=== PATIENT | female | born 1970 | race Caucasian/White ===

== ENCOUNTER 2017-09-21 05:25 | Inpatient (IN) | payer OTHER ==
--- NOTE | 2017-09-11 13:17 | PAT Medication Instructions ---
Service Date Sep 11, 2017. Current Home Medication List Acetaminophen (Tylenol), 1,000 MG PO PRN Ibuprofen (Advil), 400 MG PO PRN Levothyroxine Sodium (Levothyroxine Sodium), 1 TAB PO QAM Ranitidine (Zantac), 150 MG PO BID PRN for PRN Rizatriptan Benzoate (Maxalt), 10 MG PO PRN [Pseudoephedrine], 1 TAB PO PRN Medication Instructions For Your Scheduled Surgery - Check with surgeon for instructions: Ibuprofen (Advil), 400 MG PO PRN - Hold the following medications the morning of surgery: [Pseudoephedrine], 1 TAB PO PRN - Take the following medications the morning of surgery with a sip of water: Rizatriptan Benzoate (Maxalt), 10 MG PO PRN (if needed) Levothyroxine Sodium (Levothyroxine Sodium), 1 TAB PO QAM Ranitidine (Zantac), 150 MG PO BID PRN for PRN (if needed) Acetaminophen (Tylenol), 1,000 MG PO PRN (okay to up to 4 hours prior to surgery if needed) - Take the following medications as scheduled the night before surgery: [Pseudoephedrine], 1 TAB PO PRN Rizatriptan Benzoate (Maxalt), 10 MG PO PRN (if needed) Ranitidine (Zantac), 150 MG PO BID PRN for PRN iif needed) If you have any questions please call us at [phone] or [phone] or [phone]
[2017-09-11 14:55] LABS: BASO % 0.3 %; BASO ABS # 0.02 K/uL (0-0.2); COMPLETE YES; EOS % 0.4 %; HEMATOCRIT 39.3 % (37-47); IG% 0.3 %; LYMPH % 22.6 %; LYMPH ABS # 1.66 K/uL (1.2-3.4); MEAN CELL VOLUME 91.4 fL (80-100); MEAN CORPUSCULAR HEMOGLOBIN 31.6 pg (25-34); MEAN CORPUSCULAR HGB CONC 34.6 g/dl (32-36); MEAN PLATELET VOLUME 9.3 fL (7.4-10.4); MONO % 5.6 %; NEUT % 70.8 %; PLATELET COUNT 273 K/uL (130-400); WHITE BLOOD COUNT 7.34 K/uL (4.8-10.8)
[~2017-09-21] VITALS: Ht 162.6 cm; Wt 81.2 kg
[2017-09-21] VITALS (8 sets, daily range): BP systolic 107–123; BP diastolic 62–80; PULSE 63–91; TEMP 36.5–37.3; O2SAT 94–99; Ht 162.6 cm; Wt 81.2 kg
[~2017-09-21 05:25] MED LIST: ACET-1256 PO; IBUP-1050 PO; LEVO112T4 PO; PSEUDOEPHEDRINE PO; RIZA10TA18 PO; ZNTT/150 PO
[2017-09-21] MEDS ORDERED: LACTATED RINGER'S 1000ML 1,000 ML IV SCH ×2 (06:00)
[2017-09-21] MEDS ORDERED: CEFAZOLIN 2000MG IV PUSH 10 ML IV SCH (06:00)
[2017-09-21] MEDS ORDERED: MINERAL OIL LIGHT 10 ML BTL ONE (06:36)
[2017-09-21] MEDS ORDERED: LIDOCAINE HCL 1% 20 ML VIAL ONE (06:36)
[2017-09-21] MEDS ORDERED: METHYLENE BLUE 0.5% 10 ML VIAL ONE ×2 (06:37→09:14)
[2017-09-21] MEDS ORDERED: MIDAZOLAM HCL 1 MG/ML 2ML VIAL ONE (06:52)
[2017-09-21] MEDS ORDERED: FENTANYL CITRATE INJ 50 MCG/1 ML 2 ML VIAL ONE ×2 (06:52→11:04)
--- NOTE | 2017-09-21 06:58 | History & Physical Bridge - [place] ---
H&P Re-Evaluation Bridge Note: I have examined the patient, reviewed the History & Physical and in the interval since the performance of the History & Physical I have noted the following changes of clinical significance: No changes noted
[2017-09-21] MEDS ORDERED: HYDROmorphone INJ 2 MG/ML SYR/VIAL ONE (07:28)
[2017-09-21] MEDS ORDERED: GLYCOPYRROLATE INJ 0.2 MG/ML VIAL ONE (07:49)
[2017-09-21] MEDS ORDERED: ROCURONIUM BROMIDE 10 MG/ML 5 ML VIAL IV ONE ×2 (07:49→08:02)
[2017-09-21] MEDS ORDERED: PROPOFOL IV EMULSION 10 MG/ML 20 ML VIAL IV ONE (07:49)
[2017-09-21] MEDS ORDERED: DEXAMETHASONE SOD INJ 4 MG/ML VIAL ONE (07:49)
[2017-09-21] MEDS ORDERED: LIDOCAINE HCL 2% 2 ML VIAL (20MG/ML) ONE (07:49)
[2017-09-21] MEDS ORDERED: PHENYLEPHRINE 100MCG/ML 5ML SYR ONE (07:49)
[2017-09-21] MEDS ORDERED: NEOSTIGMINE METHYLSULFATE 5 MG/5 ML SYR ONE (07:49)
[2017-09-21] MEDS ORDERED: ONDANSETRON INJ 2 MG/ML 2 ML VIAL ONE (07:49)
[2017-09-21] MEDS ORDERED: HYDROmorphone INJ 1 MG/ML SYR IV PRN (11:00)
[2017-09-21] MEDS ORDERED: ONDANSETRON INJ 2 MG/ML 2 ML VIAL IV PRN ×2 (11:00→11:30)
[2017-09-21] MEDS ORDERED: ATROPINE SULFATE 0.1 MG/ML 5ML SYR IV PRN (11:00)
[2017-09-21] MEDS ORDERED: EpHEDrine SULFATE INJ 50 MG/ML AMP IV PRN (11:00)
[2017-09-21] MEDS ORDERED: LABETALOL HCL IV 5 MG/ML 20ML IV PRN (11:00)
[2017-09-21] MEDS ORDERED: FENTANYL CITRATE INJ 50 MCG/1 ML 2 ML VIAL IV PRN (11:00)
[2017-09-21] MEDS ORDERED: MEPERIDINE HCL 25 MG/ML CARP IV PRN (11:00)
[2017-09-21] MEDS ORDERED: BISACODYL 10 MG SUPP PR PRN (11:30)
[2017-09-21] MEDS ORDERED: ZOLPIDEM TARTRATE 5 MG TAB PO PRN (11:30)
[2017-09-21] MEDS ORDERED: MAGNESIUM HYDROXIDE SUSP 30 ML UDC PO PRN (11:30)
[2017-09-21] MEDS ORDERED: PROMETHAZINE HCL INJ 12.5 MG in SODIUM CHLORIDE 0.9% 50ML 50 ML IV PRN (11:30)
[2017-09-21] MEDS ORDERED: ACETAMINOPHEN 325 MG TAB PO PRN (11:30)
[2017-09-21] MEDS ORDERED: OXYCODONE/ACETAMINOPHEN 5-325 TAB PO PRN ×2 (11:30)
[2017-09-21] MEDS ORDERED: KETOROLAC TROMETHAMINE 30 MG/ML VIAL IV. PRN (11:30)
--- NOTE | 2017-09-21 11:53 | Anesthesiology Progress Note ---
Anesthesia Post Op Note Date & Time Sep 21, 2017 at 11:53 Vital Signs Pain Intensity: 4 Vital Signs Past 12 Hours Date Time Temp Pulse Resp B/P (MAP) Pulse Ox O2 Delivery O2 Flow Rate FiO2 09/21/17 11:42 36.0 09/21/17 11:36 116/71 09/21/17 11:32 87 16 09/21/17 11:32 89 16 98 09/21/17 11:31 120/71 09/21/17 11:27 84 12 97 09/21/17 11:27 81 12 09/21/17 11:26 111/78 09/21/17 11:23 69 16 98 09/21/17 11:23 71 16 09/21/17 11:21 109/75 09/21/17 11:18 63 16 97 09/21/17 11:18 63 16 09/21/17 11:17 70 16 98 09/21/17 11:17 69 16 09/21/17 11:16 129/78 09/21/17 11:12 64 16 09/21/17 11:12 64 16 99 09/21/17 11:11 128/81 09/21/17 11:07 74 16 09/21/17 11:07 73 16 99 09/21/17 11:06 132/84 09/21/17 11:02 70 16 09/21/17 11:02 71 16 100 09/21/17 11:01 133/89 09/21/17 10:57 70 12 100 09/21/17 10:57 70 12 09/21/17 10:56 133/74 09/21/17 10:52 84 21 130/80 98 09/21/17 10:52 36.4 86 16 130/80 10 Oxymask 09/21/17 10:52 84 21 09/21/17 05:49 36.8 77 18 116/62 (80) 97 Room Air Notes Mental Status: alert / awake / arousable, participated in evaluation Pt Amnestic to Procedure: Yes Nausea / Vomiting: adequately controlled Pain: adequately controlled Airway Patency, RR, SpO2: stable & adequate BP & HR: stable & adequate Hydration State: stable & adequate Anesthetic Complications: no major complications apparent
[2017-09-21 13:27] LABS: CREATININE 0.89 mg/dl (0.60-1.20)
[2017-09-21] MEDS: LACTATED RINGER'S 1000ML 1,000 ML IV SCH ×2 (13:59→20:28)
[2017-09-21] MEDS: SIMETHICONE 80 MG CHEW PO PRN (19:31)
[2017-09-21] MEDS: IBUPROFEN 600 MG TAB PO PRN (19:32)
[2017-09-21] MEDS: DOCUSATE SODIUM 100 MG CAP PO SCH (20:27)
[2017-09-21 21:03] LABS: HEMATOCRIT 37.7 % (37-47)
[2017-09-22] MEDS: IBUPROFEN 600 MG TAB PO PRN (00:19)
[2017-09-22 04:30] VITALS: BP 98/64; PULSE 91; TEMP 37.1; O2SAT 96
[2017-09-22 06:28] LABS: BASO % 0.1 %; BASO ABS # 0.01 K/uL (0-0.2); COMPLETE YES; EOS % 0.1 %; HEMATOCRIT 32.9 % (37-47); IG% 0.2 %; LYMPH % 19.3 %; LYMPH ABS # 1.72 K/uL (1.2-3.4); MEAN CELL VOLUME 91.9 fL (80-100); MEAN CORPUSCULAR HEMOGLOBIN 31.3 pg (25-34); MEAN PLATELET VOLUME 9.1 fL (7.4-10.4); MONO % 7.8 %; NEUT % 72.5 %; PLATELET COUNT 212 K/uL (130-400); RED BLOOD COUNT 3.58 M/uL (4.2-5.4); WHITE BLOOD COUNT 8.89 K/uL (4.8-10.8)
[2017-09-22 07:00] LABS: BUN/CREATININE RATIO 14.1 (10-20); CREATININE 0.68 mg/dl (0.60-1.20); POTASSIUM 3.6 mmol/L (3.5-5.1)
[2017-09-22 07:20] VITALS: BP 110/67; PULSE 84; TEMP 36.7; O2SAT 97
[2017-09-22] MEDS: SIMETHICONE 80 MG CHEW PO PRN (08:04)
[2017-09-22] MEDS ORDERED: MTR600X PO (08:21)
[2017-09-22] MEDS ORDERED: OXYC-57 PO (08:21)
--- NOTE | 2017-09-22 08:23 | Discharge Instructions ---
Discharge Instructions Date of Service Sep 22, 2017. Admission Reason for Admission: Fibroid Uterus, Menorrhagia Discharge Discharge Diagnosis / Problem: postop Discharge Goals Goal(s): Routine recovery after surgery Activity Recommendations Activity Limitations: as noted below POST OPERATIVE: BOWEL FUNCTION/MEDICATIONS: 1. Constipation pain and discomfort are the most common complaints 5-7 days after surgery. Points 2-6 address the things that can help. 2. Chewing gum can help stimulate the gut and help improve digestion and motility. 3. Milk of Magnesia 1-2 times per day until return of bowel function. 4. Colace is a stool softener that helps. Taking this 2-3 times per day until bowel function returns to normal is highly recommended. 5. Dulcolax is a laxative that may be used if several days have passed without a bowel movement. Alternatively Miralax may be used daily instead. 6. Drink plenty of fluids as this will also reduce constipation. 7. Narcotic pain medications will be prescribed by your physician. They are safe to use and we encourage you to use them. If you are not allergic, ibuprofen will also be prescribed. Many patients will be able to transition off of the narcotic medications to ibuprofen by postoperative day 3. ACTIVITY RECOMMENDATIONS: 1. Get plenty of rest and listen to your body. If you are tired, take a nap. 2. You may shower, but do not take a tub bath until you see your doctor at the 2 week post operative visit. 3. Absolutely NO intercourse and nothing in the vagina until you are examined by your doctor at the 6 week visit. At that visit it will be determined when such activities can be resumed. This can range from 6-12 weeks after your surgery depending on healing time. 4. The main physical activity in the first week should be walking. By the second week you can slowly increase activity. There are no limits on walking up and down stairs. 5. Do not lift more than 5-10 lbs for 4 weeks. Remember the "one-handed rule", i.e. if you can lift something with only one hand it's likely okay. 6. 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 "Overdoing it" can lead to incisions not healing, pain and vaginal bleeding , so again, listen to your body. 7. Driving can be resumed when you feel able. Do not drive within 24 hours of taking a narcotic medication. EXPECTATIONS: 1. Vaginal spotting, bleeding and discharge are common after surgery. There may even be an odor to the discharge which is often related to sutures used in the vagina. If you experience heavy vaginal bleeding, call the office number day or night [phone] 2. Bladder discomfort is common after surgery from the catheter. This usually resolves in 1-2 weeks. 3. By the end of the 3rd or 4th week you should be feeling much better. It may take up to 6 weeks for your energy levels to return to normal. 4. Narcotic medications have side effects such as: dizziness, headache, nausea and/or vomiting. If you suspect your pain medication is causing problems, call our office and we may be able to prescribe an alternate medication. 5. The skin incisions are often covered with a liquid bandage. This will gradually peel off over time. CALL THE OFFICE IF YOU HAVE ANY OF THE FOLLOWIN. Temperature of 101 degrees or higher. 2. Severe abdominal or pelvic pain not relieved by pain medication. 3. Persistent nausea or vomiting. 4. Increased pain with urination or difficulty urinating. 5. Bright red bleeding that soaks more than 1 pad per hour. CONTACT PHONE NUMBERS: Main Office: [phone] Surgical Nurse: [phone] FOLLOW-UP: Post-Operative Appointments: * Individual instructions will have been given about the timing of your first examination, but this is usually at the end of the second week home. * You will need to call the office at soon after discharge to make the appointment for your post-op check-up if it has not already been scheduled. * Additional information regarding activity, sexual intercourse and when to return to work will be given at this appointment. WE WISH YOU A SPEEDY RECOVERY! . Current Hospital Diet Patient's current hospital diet: Regular Diet Discharge Diet Recommended Diet: Regular Diet Procedures Procedures Performed: Total Laparoscopic Hysterectomy, Cystoscopy Pending Studies Studies pending at discharge: no Medical Emergencies . Who to Call and When: Medical Emergencies: If at any time you feel your situation is an emergency, please call 911 immediately. . Non-Emergent Contact Non-Emergency issues call your: Specialist . . "Provider Documentation" section prepared by Zackery Khoury. . VTE Core Measure Inpt VTE Proph given/why not?: Treatment not indicated
--- NOTE | 2017-09-22 08:25 | Surgery Progress Note ---
Surgery Progress Note Date of Service Sep 22, 2017. 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, No nausea, No vomiting Objective Vital Signs: Date Time Temp Pulse Resp B/P (MAP) Pulse Ox O2 Delivery O2 Flow Rate FiO2 09/22/17 04:30 37.1 91 16 98/64 (75) 96 Room Air 09/21/17 23:30 37.0 85 18 116/69 (85) 97 Room Air 09/21/17 23:30 97 Room Air 09/21/17 18:40 37.3 91 18 114/70 (85) 95 Room Air 09/21/17 15:00 37.0 85 18 107/68 (81) 97 Room Air 09/21/17 15:00 97 Room Air 09/21/17 14:00 77 18 118/74 (89) 94 Room Air 09/21/17 13:00 68 18 123/76 (92) 99 Room Air 09/21/17 12:30 63 16 120/78 (92) 99 Room Air 09/21/17 12:00 96 Nasal Cannula 1.0 09/21/17 12:00 36.5 16 122/80 (94) 96 Nasal Cannula 1.0 09/21/17 12:00 96 Nasal Cannula 1.0 09/21/17 11:42 36.0 09/21/17 11:36 116/71 09/21/17 11:32 87 16 09/21/17 11:32 89 16 98 09/21/17 11:31 120/71 09/21/17 11:27 84 12 97 09/21/17 11:27 81 12 09/21/17 11:26 111/78 09/21/17 11:23 69 16 98 09/21/17 11:23 71 16 09/21/17 11:21 109/75 09/21/17 11:18 63 16 97 09/21/17 11:18 63 16 09/21/17 11:17 70 16 98 09/21/17 11:17 69 16 09/21/17 11:16 129/78 09/21/17 11:12 64 16 09/21/17 11:12 64 16 99 09/21/17 11:11 128/81 09/21/17 11:07 74 16 09/21/17 11:07 73 16 99 09/21/17 11:06 132/84 09/21/17 11:02 70 16 09/21/17 11:02 71 16 100 09/21/17 11:01 133/89 09/21/17 10:57 70 12 100 09/21/17 10:57 70 12 09/21/17 10:56 133/74 09/21/17 10:52 84 21 130/80 98 09/21/17 10:52 36.4 86 16 130/80 10 Oxymask 09/21/17 10:52 84 21 General Appearance: WD/WN, no apparent distress Head: normocephalic, atraumatic Neck: supple, no adenopathy, thyroid normal, no JVD, no carotid bruits, trachea midline Respiratory/Chest: chest non-tender, lungs clear, normal breath sounds, no respiratory distress, no accessory muscle use Cardiovascular: regular rate, rhythm, no edema, no gallop, no JVD, no murmur Abdomen: normal bowel sounds, non tender, non distended, soft, no organomegaly , no pulsatile mass Incision(s): clean, dry, intact, no erythema, no drainage Extremities: normal range of motion, non-tender, normal inspection, no pedal edema, no calf tenderness, normal capillary refill, pelvis stable Laboratory Results: Results Past 24 Hours Test 09/21/17 12:34 09/21/17 20:50 09/22/17 06:06 Range/Units Creatinine 0.89 0.68 0.60-1.20 mg/dl Est Creatinine Clear Calc Drug Dose 81.4 106.6 ml/min Estimated GFR () 90.1 121.6 Estimated GFR (Non- 77.7 104.9 Hemoglobin 13.4 11.2 12.0-16.0 g/dL Hematocrit 37.7 32.9 37-47 % White Blood Count 8.89 4.8-10.8 K/uL Red Blood Count 3.58 4.2-5.4 M/uL Mean Corpuscular Volume 91.9 80-100 fL Mean Corpuscular Hemoglobin 31.3 25-34 pg Mean Corpuscular Hemoglobin Concent 34.0 32-36 g/dl Platelet Count 212 130-400 K/uL Mean Platelet Volume 9.1 7.4-10.4 fL Neutrophils (%) (Auto) 72.5 % Lymphocytes (%) (Auto) 19.3 % Monocytes (%) (Auto) 7.8 % Eosinophils (%) (Auto) 0.1 % Basophils (%) (Auto) 0.1 % Neutrophils # (Auto) 6.44 1.4-6.5 K/uL Lymphocytes # (Auto) 1.72 1.2-3.4 K/uL Monocytes # (Auto) 0.69 0.11-0.59 K/uL Eosinophils # (Auto) 0.01 0-0.5 K/uL Basophils # (Auto) 0.01 0-0.2 K/uL RDW Standard Deviation 43.2 36.4-46.3 fL RDW Coefficient of Variation 12.7 11.5-14.5 % Immature Granulocyte % (Auto) 0.2 % Immature Granulocyte # (Auto) 0.02 0.00-0.02 K/uL Sodium Level 141 136-145 mmol/L Potassium Level 3.6 3.5-5.1 mmol/L Chloride Level 109 98-107 mmol/L Carbon Dioxide Level 25 21-32 mmol/L Anion Gap 7.0 3-11 mmol/L Blood Urea Nitrogen 10 7-18 mg/dl BUN/Creatinine Ratio 14.1 10-20 Random Glucose 88 70-99 mg/dl Calcium Level 8.0 8.5-10.1 mg/dl Assessment & Plan Post op day #1 [facility] pt cora manley d/c home with instructions
--- NOTE | 2017-09-22 08:29 | OPERATIVE REPORT ---
DATE OF OPERATION: 09/21/2017 INDICATION FOR SURGERY: This is a 47-year-old with irregular bleeding and fibroid uterus. PREOPERATIVE DIAGNOSES: 1. Irregular heavy bleeding. 2. Fibroid uterus. POSTOPERATIVE DIAGNOSES: Same. PROCEDURES: 1. Total laparoscopic hysterectomy. 2. Cystoscopy. ANESTHESIA: General. SURGEON: Zackery Khoury MD DOUBLE END TENON OPERATOR: Marquez Lindsay DO ESTIMATED BLOOD LOSS: 50 mL. IV FLUIDS: 1700 mL. URINE OUTPUT: 400 mL. FINDINGS: Normal female escutcheon. No lesions in the vulva or vagina. Cervix appears grossly normal. Abdominal findings; uterus appeared rather lobular. The uterus had a large posterior fibroid as well as anterior cervical fibroid. Both adnexa appeared grossly normal. Rest of the pelvic exam was unremarkable. PATHOLOGY: Uterus and cervix. COMPLICATIONS: None. DRAINS: Pineda catheter. DISPOSITION: Stable to recovery room. PROCEDURE IN DETAIL: The patient was taken to the operating room, where she was prepped and draped in normal sterile fashion in dorsal lithotomy position. A Pnieda catheter was placed. A VCare was placed into the uterus and around the cervix. Attention was paid to the abdominal part of the procedure, where an infraumbilical incision was made and carried down to the fascia. A Veress needle was placed in the abdomen. The abdomen was tented up and the Veress needle placed at a 45-degree angle. Once inside the abdomen, placement was confirmed with a water filled syringe. The abdomen was insufflated with CO2 gas. The Veress needle was removed and a trocar under direct visualization was placed into the abdomen at a 45-degree angle as well. Once inside the abdomen, the laparoscope was repositioned. Two lateral accessory ports were placed also under direct visualization. The patient was placed in Trendelenburg position. This was to enable the bowel to move out of the pelvis. Findings of the pelvis were as dictated above. The uterus and adnexa were both identified by surgeon and bindery library technical assistant. The round ligaments on both the sides were identified and fulgurated using a LigaSure. The infundibulopelvic was dissected on both sides and there was good hemostasis. The dissection was carried down in the direction towards the cervix. The broad ligament was dissected. The bladder reflection over the lower segment of the uterus was carefully dissected over the bladder. The uterine arteries on both sides were identified and fulgurated. There was good hemostasis. Dissection was carried down towards the uterosacrals. Uterosacrals were identified on both sides, grabbed, fulgurated and dissected. At this point, the VCare could be palpated. A circumferential incision was made around the VCare. This freed up the cervix from the vagina. The specimen was removed through the vagina. A glove filled with sponge was placed in the vagina to help maintain pneumoperitoneum. The vaginal cuff was closed in a locking fashion using the EndoStitch. Copious amount of irrigation was used to irrigate the abdomen. There was good hemostasis at this point. The ureter had been identified throughout the procedure. The peritoneum was also closed using the EndoStitch. Both the peritoneum and the vaginal cuff were closed with an absorbable suture. More irrigation was performed and inspection of all the pedicles showed no bleeding. There was good hemostasis. The cystoscopy part of the procedure was performed. The cystoscope was placed into the bladder and both ureteral orifices were identified. The patient earlier had been given methylene blue. A blue dye was seen jetting out of both orifices without difficulty. The patient had some thickening in the bladder. I know from the patient's history that she has had several cystoscopies because of bladder problems. It was obvious this was a preexisting problem with the patient prior to the procedure today. The laparoscopic incision sites were closed in 2 layers and fascias were closed with Vicryl stitch. The skin was closed with 4-0 Monocryl. This was done after the trocars were removed from the abdomen. All instruments were removed from the abdomen and the vagina and accounted for x2, including sponges and needles. The patient was sent to recovery in stable condition. I attest to the content of the Intraoperative Record and any orders documented therein. Any exception s are noted below.
[2017-09-22 08:53] VITALS: BP 110/67; PULSE 84; TEMP 36.7; O2SAT 97
[2017-09-22] MEDS: DOCUSATE SODIUM 100 MG CAP PO SCH (09:08)
== END 2017-09-22 10:35 | disposition home or self-care (01) | DRG 743 ==
LOC: C.ACU 05:25 → C.MS4N 11:30
PROVIDERS: ADMIT Obstetrics & Gynecology; ATTEND Obstetrics & Gynecology
PROC: 0UTC4ZZ Resection of Cervix, Percutaneous Endoscopic Approach (ICD-10-PCS; principal; 2017-09-21 07:00)
PROC: 0UT94ZZ Resection of Uterus, Percutaneous Endoscopic Approach (ICD-10-PCS; principal; 2017-09-21 07:00)
DX: D25.9 Leiomyoma of uterus, unspecified (principal); N92.1 Excessive and frequent menstruation with irregular cycle; E06.3 Autoimmune thyroiditis; K21.9 Gastro-esophageal reflux disease without esophagitis; J30.9 Allergic rhinitis, unspecified; Z79.899 Other long term (current) drug therapy; Z87.891 Personal history of nicotine dependence; Z82.61 Family history of arthritis; Z83.49 Family history of other endocrine, nutritional and metabolic diseases; Z80.1 Family history of malignant neoplasm of trachea, bronchus and lung; Z83.3 Family history of diabetes mellitus; Z82.0 Family history of epilepsy and other diseases of the nervous system